=== PATIENT | male | born 1985 | race Caucasian/White ===

== ENCOUNTER 2022-03-31 21:02 | Emergency (ER) | payer BC ==
[2022-03-31 21:12] VITALS: RESP 17; TEMP 98
[2022-03-31] MEDS ORDERED: SODIUM CHLORIDE 1,000 ML IV STA ×2 (21:47→23:14)
[2022-03-31 22:19] LABS: HEMATOCRIT 43.9 % (35.4-49); HEMOGLOBIN 15.8 G/dL (11.7-16.9); MCH 30.6 pg (25.7-33.7); MCHC 36.1 g/dl (32.0-35.9); MEAN CELL VOLUME 84.7 fl (80-96); MEAN PLT VOLUME 7.9 fl (7.5-11.1); PLATELET COUNT 223.8 10^3/uL (134-434); RBC 5.18 10^6/uL (4.00-5.60); RDW 13.4 % (11.9-15.9)
[2022-03-31 22:22] LABS: ALBUMIN 3.9 g/dl (3.4-5.0); BILIRUBIN,TOTAL 0.3 mg/dl (0.2-1); CALCIUM 8.8 mg/dl (8.5-10)
[2022-03-31 22:56] LABS: PLATELET ESTIMATE ADEQUATE
[2022-04-01 01:31] VITALS: BP 133/83; PULSE 76
== END 2022-04-01 01:46 | disposition home or self-care (01) ==
LOC: FER 21:02
PROC: 3E0337Z Introduction of Electrolytic and Water Balance Substance into Peripheral Vein, Percutaneous Approach (ICD-10-PCS; principal; 2022-03-31)
PROC: 3E0337Z Introduction of Electrolytic and Water Balance Substance into Peripheral Vein, Percutaneous Approach (ICD-10-PCS; 2022-03-31)
DX: H53.2 Diplopia (principal); E86.0 Dehydration
CPT/HCPCS: 0241U-QW; 36415; 70450-TC; 80053; 85027; 99284-25